=== PATIENT | male | born 1990 | race Caucasian/White ===

== ENCOUNTER 2019-01-16 08:50 | Emergency (ER) | payer OTHER ==
[2019-01-16] MEDS ORDERED: ONDANSETRON 4 MG/2 ML VIAL IVP ONE (09:35)
[2019-01-16] MEDS ORDERED: NS 1,000 ML IV ONE (09:35)
--- NOTE | 2019-01-16 09:35 | EDPHY ---
General - History Smoking Status: Never smoked Time Seen by Provider: 01/16/19 09:29 Narrative: CLINICAL IMPRESSION: Left flank pain, left-sided abdominal pain ASSESSMENT/PLAN: Patient is a 28-year-old male with a history of bilateral kidney stones that were found incidentally remotely, presents to the emergency department with left flank and left-sided abdominal pain that started suddenly just prior to arrival. Patient is afebrile, not toxic appearing and in no acute distress. His abdomen was soft, very mild tenderness to palpation in the left mid abdomen without peritoneal signs. Left CVA tenderness however also reproducible tenderness along his inferior, axillary costal margin. His workup in the emergency department was very reassuring with normal laboratory studies, normal urine and a CT with no acute findings. Query musculoskeletal etiology, he did endorse a fall that occurred 1 week prior. There were no findings to suggest renal colic, UTI, pyelo, shingles or diverticulitis. A lidocaine patch was placed, Toradol was given with mild relief of him symptoms. Return precautions discussed, he will make an appointment to see his PCP in the next 1-2 days. DIFFERENTIAL DX: Flank pain including but not limited to musculoskeletal causes, kidney stone, pyelonephritis, shingles, and intra-abdominal causes such as diverticulitis and appendicitis. ED COURSE: 0950: Discussed with Dr. Ruiz, will proceed with CT abd/pelvis w/contrast 1102: Case discussed with Dr. Bryant, patient has 3 mm nonobstructing stone , no evidence of hydro nephrosis. No evidence of diverticulitis or other acute intra-abdominal findings. 1125: On repeat examination the patient is comfortable appearing, he states his pain has mildly improved. Reassuring workup discussed with him, will trial lidocaine patch. On re-examination he is reproducible tenderness to palpation along his left flank and axillary rib cage, his abdomen is soft with very mild tenderness to palpation in the left mid abdomen. No peritoneal signs or evidence of a surgical abdomen CHIEF COMPLAINT: Left flank pain, left abdominal pain, nausea HPI: Patient is a 28-year-old male with with a history of bilateral kidney stones found incidentally with a remote pneumonia diagnosis presents to the emergency department with left flank and left-sided abdominal pain. Patient reports he felt fine when he woke up this morning, he was in the shower when he experienced sudden onset left flank pain with radiation into his left abdomen. He describes it as sharp in nature, pain has been constant. He did experience some associated nausea however has had no vomiting. Patient endorses intermittent right-sided chest pain over the years, denies any chest pain today. He also denies any shortness of breath, hemoptysis, lower extremity swelling, trauma or history of DVT or PE. He denies any urinary symptoms to include dysuria, hematuria or frequency. He had a normal bowel movement last evening, no melena or hematochezia. PMH: Kidney stones Pertinent Past Surgical History: Denies Family History: Not contributory Social History: Denies cigarette smoking or illicit drug use. REVIEW OF SYSTEMS: All other systems negative Constitutional: No fever, no chills. Eyes: No discharge, vision change ENT: No sore throat, congestion, ear pain. Cardiovascular: No chest pain, no palpitations. Respiratory: No cough, no shortness of breath. Gastrointestinal: Abdominal pain, nausea. No constipation or diarrhea. Genitourinary: Left flank pain. No hematuria, dysuria, testicular pain or swelling. Musculoskeletal: No joint swelling, joint pain, myalgias. Skin: No rashes, color change. Neurological: No headache, dizziness, weakness. PHYSICAL EXAM: General Appearance: Alert, mildly uncomfortable appearing however not toxic- appearing. HENT: Normocephalic, atraumatic. Bilateral external ears are normal. Bilateral tympanic membranes are normal with pearly sandy reflex. Nares are clear, mucosa is pink. Oropharynx is clear, mucosa is mildly dry, uvula is midline. There is no tonsillar enlargement or exudate. Eyes: PERRLA, EOMI. Conjunctiva pink, no pallor or injection. Neck: Supple, nontender, no lymphadenopathy. Respiratory: There are no retractions, lungs are clear to auscultation. Cardiac: Regular rate and rhythm, no murmurs or gallops. Gastrointestinal: Patient's abdomen is soft and nondistended. He has tenderness to palpation in the left mid and lower quadrants without rigidity, guarding or focal peritoneal signs. Bowel sounds are present. Neurological: CN 2-12 grossly intact, normal gait no ataxia. Skin: Warm, dry, no rashes, no nodules on palpation. Musculoskeletal: Extremities are symmetrical, full range of motion, no tenderness, deformity, swelling, or erythema. Psychiatric: Patient is oriented X 3, there is no agitation. MEDICAL DECISION MAKING: Patient was seen independently. Secondary supervising physician at time of evaluation was Dr. Ruiz. Diagnosis: Left flank pain, left-sided abdominal pain. New, requires workup Summary: Patient is a 20-year-old male with a history of bilateral kidney stones. CBC revealed revealed no evidence of leukocytosis or anemia. His vital signs were reviewed and there was no evidence of sepsis or serious bacterial illness. BMP revealed no metabolic abnormality or evidence of acute kidney injury. Urinalysis with no evidence of infection. CT abdomen and pelvis with bilateral nonobstructing renal stones. Query musculoskeletal etiology as the patient has reproducible pain along his left inferior axillary costal margin secondary to a fall that occurred last week. There were no clinical findings to suggest appendicitis, cholecystitis, kidney stone, pancreatitis, ACS, pyelonephritis, perforated viscus, diverticulitis, testicular torsion, epididymitis, hernia, AAA , mesenteric ischemia, or additional emergent intra-abdominal process. On repeat examination the patient is well-appearing, no acute distress, reports pain has mildly improved. PERC negative, low suspicion for PE. Clinical lab tests: ordered / reviewed. Independent visualization of images, tracing, or specimens: Yes. Decision to obtain medical records or history from someone other than the patient: No Review / Summarize previous medical records: Yes Discussed patient with another provider: Yes, Dr. Ruiz Patient Progress: Stable, discharged. (Mariaelena Chow) Medical Decision Making: I did not see this patient while he was in the emergency department. However his care was discussed with the PA while the patient was in the department. I agree with treatment plan and management (Lamonte Ruiz) - Diagnostics Imaging Results: Imaging Impressions Abdomen CT 01/16/19 09:49 Impression: 1. No acute findings in the abdomen or pelvis. 2. Bilateral nonobstructing nephrolithiasis. 3. Additional findings as above. Findings discussed with SHAKA Montero on 01/16/2019 at 10:56 a.m. - Objective Vital Signs: Initial Vital Signs Temperature (C) 36.6 C 01/16/19 08:55 Heart Rate 61 01/16/19 08:55 Respiratory Rate 18 01/16/19 08:55 Blood Pressure 116/73 01/16/19 08:55 O2 Sat (%) 100 01/16/19 08:55 O2 Delivery Mode Room Air Allergies/Adverse Reactions: ciprofloxacin [From Cipro] Allergy (Verified 01/16/19 08:55) Home Medications: Medication Instructions Recorded NK [No Known Home Meds] 01/16/19 Laboratory Results: Laboratory Results 01/16/19 09:10 01/16/19 09:10 01/16/19 01/16/19 01/16/19 09:10 09:10 09:03 WBC 5.81 10^3/uL 10^3/uL (3.80-9.50) RBC 5.30 10^6/uL 10^6/uL (4.40-6.38) Hgb 16.0 g/dL g/dL (13.7-17.5) Hct 47.6 % % (40.0-51.0) MCV 89.8 fL fL (81.5-99.8) MCH 30.2 pg pg (27.9-34.1) MCHC 33.6 g/dL g/dL (32.4-36.7) RDW 13.0 % % (11.5-15.2) Plt Count 261 10^3/uL 10^3/uL (150-400) MPV 9.9 fL fL (8.7-11.7) Neut % (Auto) 62.4 % % (39.3-74.2) Lymph % (Auto) 26.0 % % (15.0-45.0) [place] % (Auto) 7.9 % % (4.5-13.0) Eos % (Auto) 2.9 % % (0.6-7.6) Baso % (Auto) 0.5 % % (0.3-1.7) Nucleat RBC Rel Count 0.0 % % (0.0-0.2) Absolute Neuts (auto) 3.62 10^3/uL 10^3/uL (1.70-6.50) Absolute Lymphs (auto) 1.51 10^3/uL 10^3/uL (1.00-3.00) Absolute Monos (auto) 0.46 10^3/uL 10^3/uL (0.30-0.80) Absolute Eos (auto) 0.17 10^3/uL 10^3/uL (0.03-0.40) Absolute Basos (auto) 0.03 10^3/uL 10^3/uL (0.02-0.10) Absolute Nucleated RBC 0.00 10^3/uL 10^3/uL (0-0.01) Immature Gran % 0.3 % % (0.0-1.1) Immature Gran # 0.02 10^3/uL 10^3/uL (0.00-0.10) Sodium 139 mEq/L mEq/L (135-145) Potassium 4.4 mEq/L mEq/L (3.5-5.2) Chloride 107 mEq/L mEq/L (97-110) Carbon Dioxide 22 mEq/l mEq/l (22-31) Anion Gap 10 mEq/L mEq/L (6-14) BUN 12 mg/dL mg/dL (7-23) Creatinine 0.9 mg/dL mg/dL (0.7-1.3) Estimated GFR > 60 Glucose 101 mg/dL H mg/dL (70-100) Calcium 9.4 mg/dL mg/dL (8.5-10.4) Urine Color YELLOW Urine Appearance CLEAR Urine pH 7.0 (5.0-7.5) Ur Specific [place] 1.018 (1.002-1.030) Urine Protein NEGATIVE (NEGATIVE) Urine Ketones NEGATIVE (NEGATIVE) Urine Blood NEGATIVE (NEGATIVE) Urine Nitrate NEGATIVE (NEGATIVE) Urine Bilirubin NEGATIVE (NEGATIVE) Urine Urobilinogen NEGATIVE EU EU (0.2-1.0) Ur Leukocyte Esterase NEGATIVE (NEGATIVE) Urine Glucose NEGATIVE (NEGATIVE) Medications Given: Discontinued Medications Sodium Chloride (Ns) 1,000 mls @ 0 mls/hr IV EDNOW ONE; Wide Open PRN Reason: Protocol Stop: 01/16/19 09:36 Last Admin: 01/16/19 09:47 Dose: 1,000 mls Ketorolac Tromethamine (Toradol) 30 mg IVP EDNOW ONE Stop: 01/16/19 09:51 Last Admin: 01/16/19 09:56 Dose: 30 mg Miscellaneous Medication (Icy Hot Lidocaine/Menthol 4%/1% Patch) 1 patch TD EDNOW ONE Stop: 01/16/19 11:28 Last Admin: 01/16/19 11:46 Dose: 1 patch Ondansetron HCl (Zofran) 4 mg IVP EDNOW ONE Stop: 01/16/19 09:36 Last Admin: 01/16/19 09:48 Dose: 4 mg Departure - Departure Disposition: Home, Routine, Self-Care Clinical Impression: Flank pain, acute, Musculoskeletal pain Abdominal pain Qualifiers: Abdominal location: lower abdomen, unspecified Qualified Code(s): R10.30 - Lower abdominal pain, unspecified Condition: Good Instructions: Flank Pain (ED) Additional Instructions: DISCHARGE INSTRUCTIONS FROM YOUR PROVIDER Thank you for visiting our emergency department today. Please keep in mind that discharge from the emergency department does not mean that there is nothing wrong - it simply means that we have not identified an emergency condition that requires further evaluation or treatment in the hospital. You should always plan to follow up with primary care for re-evaluation of your condition in the next 2-3 days. Rest. Avoid lifting greater than 10-15 pounds. Avoid twisting or prolonged sitting. Movement and gentle walking is good for your back. Try to walk for 15-10 minutes on an even surface 3 or 4 times a day as tolerated and increase gentle exercise as your back improves. Apply ice to your low back during acute pain phase, later a heating pad set to a low setting or hot tub may be helpful to help relax muscles. Salonpas topical pain patch if you feel that this helps you. You may purchase this [id number] at the grocery store, follow instructions on packaging. For pain control: You may take Tylenol, I recommend 500-1000 mg every 6-8 hours as needed. Take with food and a full glass of water. Stop taking if this is upsetting your stomach. Do not exceed 4000 mg in a 24 hr period. You may also take ibuprofen, recommend 400 mg every 6 hr. Take with food and a full glass of water. Stop taking if this upsets your stomach. Do not exceed 2400 mg in a 24 hr period. Schedule a follow-up appointment with your primary care physician in the next 2- 3 days for re-evaluation. You may require further treatment, physical therapy and/or further future testing. Return for increased or unmanageable pain, new injury, new midline back pain, numbness, tingling, weakness of your legs, loss of bowel or bladder control, inability to urinate, burning or pain with urination, blood in the urine, fever , chills, abdominal pain, vomiting, difficulty walking, dizziness, fainting, chest pain, shortness of breath, neck pain, neck stiffness, other site of back pain, calf pain, leg redness or swelling, or for any other new, worsening or worrisome symptoms. People present with illnesses and injuries in different ways, and it is always possible that we have missed something. Again, thank you for choosing our emergency department. We hope that you feel better. Referrals: NONE *PRIMARY CARE P,. [Primary Care Provider] - As per Instructions (Please follow-up with your primary care provider.) Lucinda Ayala MD [Medical Doctor] - As per Instructions (This is a referral for a primary care provider if you do not have 1. ) Stand Alone Forms: Work Excuse
[2019-01-16 09:43] LABS: PLATELET COUNT 261 10^3/uL (150-400)
[2019-01-16] MEDS ORDERED: KETOROLAC 30 MG/1 ML SDV IVP ONE (09:50)
[2019-01-16] MEDS ORDERED: IOPAMIDOL (ISOVUE-300) 100 ML BTL ONE (10:20)
[2019-01-16] MEDS ORDERED: LIDOCAINE 4%/MENTHOL 1% PATCH TD ONE (11:27)
[2019-01-16 11:46] VITALS: BP 132/83
[2019-01-16] MEDS ORDERED: PATCH REMOVAL 1 EA PATCH TD SCH (21:00)
== END 2019-01-16 11:55 | disposition home or self-care (01) ==
DX: R10.30 Lower abdominal pain, unspecified (principal); M79.10 Myalgia, unspecified site; N20.0 Calculus of kidney; E86.9 Volume depletion, unspecified
CPT/HCPCS: 96374; J1885; J2405; Q9967